=== PATIENT | female | born 1975 | race Caucasian/White ===

== ENCOUNTER 2016-11-19 10:02 | Inpatient (IN) | payer OTHER ==
--- NOTE | 2016-11-19 10:47 | ED.PDOC ---
History of Present Illness - General Chief Complaint: Problem Time Seen by Provider: 11/19/16 10:44 Source: patient, RN notes reviewed, Vital Signs reviewed - History of Present Illness Initial Comments: This 41 y/o uncontrolled diabetic has had increasing left flank pain and dysuria for 3 days. She reports subjective fever - mild. Timing/Duration: other - 3 days Severity: moderate Improving Factors: nothing Worsening Factors: nothing Associated Symptoms: fever/chills Allergies/Adverse Reactions: Allergies Morphine Allergy (Verified 11/07/16 00:08) Sumatriptan [From Imitrex] Allergy (Verified 11/07/16 00:08) Ketorolac Tromethamine [From Toradol] Adverse Reaction (Verified 11/07/16 00:08) Home Medications: Ambulatory Orders Phenobarbital 64.8 mg PO TID 09/18/14 Insulin Aspart [Novolog] 100 unit SC .SLIDING SCALE 07/14/16 Insulin Detemir [Levemir] 60 unit SUBCU BEDTIME 07/14/16 Cyclobenzaprine HCl [Flexeril] 10 mg PO Q8HR #20 tab 07/29/16 Ondansetron [Zofran Odt] 4 mg PO Q4H PRN #10 tab 11/07/16 Sucralfate Tab [Carafate Tab] 1 gm PO QID #60 tab 11/07/16 Review of Systems - Review of Systems Constitutional: States: fever, malaise EENTM: States: no symptoms reported Respiratory: States: no symptoms reported Cardiology: States: no symptoms reported Gastrointestinal/Abdominal: States: no symptoms reported Genitourinary: States: dysuria, frequency Musculoskeletal: States: back pain Skin: States: no symptoms reported Neurological: States: no symptoms reported Endocrine: States: other - elevated blood sugars Hematologic/Lymphatic: States: no symptoms reported Past Medical History (General) - Patient Medical History Hx Seizures: Yes Hx Stroke: No Hx Dementia: No Hx Asthma: No Hx of COPD: No Hx Cardiac Disorders: No Hx Congestive Heart Failure: No Hx Pacemaker: No Hx Hypertension: No Hx Thyroid Disease: No Hx Diabetes: Yes Hx Gastroesophageal Reflux: No Hx Renal Disease: No Hx Cancer: No Hx of HIV: No Hx Hepatitis C: No Hx MRSA: No MRSA Source:: Wound - Vaccination History Hx Tetanus, Diphtheria Vaccination: No Hx Influenza Vaccination: Yes Hx Pneumococcal Vaccination: No - Social History Hx Tobacco Use: No Hx Chewing Tobacco Use: No Hx Alcohol Use: Yes Hx Substance Use: No Hx Substance Use Treatment: No Hx Depression: No Hx Physical Abuse: No Hx Emotional Abuse: No Hx Suspected Abuse: No - Female History Patient : No Family Medical History - Family History Mother Family History: Unknown Living Status: Still Living Hx Family Cancer: Yes - cervical Physical Exam - Physical Exam General Appearance: Alert, Comfortable, No apparent distress Ears, Nose, Throat: hearing grossly normal, normal ENT inspection Respiratory: lungs clear, normal breath sounds, no respiratory distress, no accessory muscle use Cardiovascular/Chest: regular rate, rhythm, no edema, no gallop, no murmur Gastrointestinal/Abdominal: normal bowel sounds, soft, no organomegaly, no pulsatile mass, tenderness - mild epigastric tenderness Back Exam: CVA tenderness (L) Extremity: normal range of motion, non-tender Neurologic: alert, normal mood/affect, oriented x 3 Skin Exam: normal color, warm/dry Progress - Results/Orders Results/Orders: 11/19/16 10:56 Respiratory 20 Rate Blood Pressure 142/83 [L Arm] O2 Sat by Pulse 94 L Oximetry 11/19/16 10:28 URINE CULTURE W/COLONY COUNT Stat 11/19/16 13:19 BLOOD CULTURE Stat 11/19/16 13:22 Meropenem [Merrem] 1 gm Sodium Chl 0.9% 50Ml Min-Bag+ [NS 50ml MINI-BAG+] 50 ml IVPB ONCE Laboratory Results WBC 13.0 K/mm3 (4.8-10.8) H 11/19/16 11:10 RBC 4.75 M/mm3 (4.20-5.40) 11/19/16 11:10 Hgb 13.6 gm/dL (12.0-16.0) 11/19/16 11:10 Hct 40.9 % (36.0-47.0) 11/19/16 11:10 MCV 86.0 fl (81.0-99.0) 11/19/16 11:10 MCH 28.6 pg (27.0-31.0) 11/19/16 11:10 MCHC 33.3 g/dL (33.0-37.0) 11/19/16 11:10 RDW 12.9 % (11.5-14.5) 11/19/16 11:10 Plt Count 221 K/mm3 (130-400) 11/19/16 11:10 MPV 9.0 fl (7.40-10.4) 11/19/16 11:10 Absolute Neuts (auto) 10.00 K/uL (1.8-6.8) H 11/19/16 11:10 Absolute Lymphs (auto) 2.20 K/uL (1.0-3.4) 11/19/16 11:10 Absolute Monos (auto) 0.70 K/uL (0.2-0.8) 11/19/16 11:10 Absolute Eos (auto) 0.00 K/uL (0.0-0.4) 11/19/16 11:10 Absolute Basos (auto) 0.10 K/uL (0.0-0.1) 11/19/16 11:10 Neutrophils % 76.9 % (42.0-78.0) 11/19/16 11:10 Lymphocytes % 16.7 % (20.0-50.0) L 11/19/16 11:10 Monocytes % 5.7 % (2.0-9.0) 11/19/16 11:10 Eosinophils % 0.3 % (1.0-5.0) L 11/19/16 11:10 Basophils % 0.4 % (0.0-2.0) 11/19/16 11:10 Sodium 131 mmol/L (135-145) L 11/19/16 11:10 Potassium 3.9 mmol/L (3.6-5.0) 11/19/16 11:10 Chloride 98 mmol/L (101-111) L 11/19/16 11:10 Carbon Dioxide 24 mmol/L (21-31) 11/19/16 11:10 Anion Gap 12.9 (12-18) 11/19/16 11:10 BUN 15 mg/dL (7-18) 11/19/16 11:10 Creatinine 0.69 mg/dL (0.6-1.3) 11/19/16 11:10 BUN/Creatinine Ratio 21.7 (10-20) H 11/19/16 11:10 Random Glucose 373 mg/dL (70-105) H 11/19/16 11:10 Serum Osmolality 278.7 mOsm/L (275-295) 11/19/16 11:10 Calcium 9.1 mg/dL (8.4-10.2) 11/19/16 11:10 Urine Color Yellow (Yellow) 11/19/16 10:28 Urine Appearance Cloudy (Clear) 11/19/16 10:28 Urine pH 5.0 (4.5-7.8) 11/19/16 10:28 Ur Specific [place] 1.020 (1.005-1.030) 11/19/16 10:28 Urine Protein 30 mg/dL 11/19/16 10:28 Urine Glucose (UA) >=1000 mg/dL (Negative) H 11/19/16 10:28 Urine Ketones Negative mg/dL (NEGATIVE) 11/19/16 10:28 Urine Blood Large (Negative) H 11/19/16 10:28 Urine Nitrite Negative 11/19/16 10:28 Urine Bilirubin Negative (NEGATIVE) 11/19/16 10:28 Urine Urobilinogen 0.2 mg/dL (0.2-1.0) 11/19/16 10:28 Ur Leukocyte Esterase Trace (Negative) H 11/19/16 10:28 Urine RBC 20-30 /hpf H 11/19/16 10:28 Urine WBC Tntc /hpf H 11/19/16 10:28 Ur Epithelial Cells 10-20 /hpf 11/19/16 10:28 Urine Bacteria 4+ H 11/19/16 10:28 Departure - Departure Clinical Impression: Pyelonephritis Diabetes mellitus Qualifiers: Diabetes mellitus type: type 2 Diabetes mellitus complication status: with hyperglycemia Qualifier Code: (E11.65) Type 2 diabetes mellitus with hyperglycemia Time of Disposition: 13:29 Disposition: Admit Patient Condition: Good Departure Forms: ED Discharge - Pt. Copy, Patient Portal Self Enrollment Home Medications: Ambulatory Orders Phenobarbital 64.8 mg PO TID 09/18/14 Insulin Aspart [Novolog] 100 unit SC .SLIDING SCALE 07/14/16 Insulin Detemir [Levemir] 60 unit SUBCU BEDTIME 07/14/16 Cyclobenzaprine HCl [Flexeril] 10 mg PO Q8HR #20 tab 07/29/16 Ondansetron [Zofran Odt] 4 mg PO Q4H PRN #10 tab 11/07/16 Sucralfate Tab [Carafate Tab] 1 gm PO QID #60 tab 11/07/16 Decision To Admit - Decistion To Admit Decision to Admit Reason: Admit from ER Decision to Admit Date: 11/19/16 Decision to Admit Time: 13:20
[2016-11-19] MEDS ORDERED: MEROPENEM 1 GM in SODIUM CHL 0.9% 50ML MIN-BAG+ 50 ML IVPB ONE (13:22)
[2016-11-19] MEDS ORDERED: HYDROmorphone HCL INJ 2 MG/ML VIAL IV ONE (13:23)
--- NOTE | 2016-11-19 13:53 | HP ---
HISTORY OF PRESENT ILLNESS: This 41 year-old white female was admitted to the hospital via the Emergency Room because of worsening symptoms of left sided low back pain with radiation around to the front with associated nausea, vomiting and chills. Her symptoms especially started about 4 days ago and the patient started with increased water and cranberry juice consumption, but her symptoms failed to improve. The back pain on the left side radiating around to the left front of her abdomen is new and she has had some associated chills and low fever. Nausea and vomiting was even worse today. Headache has been noted with some loose stool. No blood in the stool. No blood in the emesis. In the Emergency Room, she was found to have evidence of a urinary tract infection on urinalysis with an elevated white blood cell count. Cultures were obtained and she was started on parenteral Meropenem pending the culture results because of the severity thereof of the pain and the possibility of an underlying pyelonephritis. PAST MEDICAL HISTORY: 1. Diabetes mellitus on insulin. 2. Seizures for which she takes Phenobarbital and the last seizure was a little over a year ago. She is followed by a neurologist out of [place]. PAST SURGICAL HISTORY: 1. Right shoulder. 2. Dilatation and curettage. 3. Appendectomy. 4. Hysterectomy. CURRENT MEDICATIONS: Please refer to nurses' notes for a list of verified medications taken at home by the patient. ALLERGIES: MORPHINE, TORADOL AND SUMATRIPTAN. FAMILY HISTORY: Positive for cancer and diabetes. 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 REVIEW OF SYSTEMS: She states she has lost about 15 pounds over the last couple of months and is trying to lose weight by eating less, and trying to be more active. Low-grade fever and chills noted earlier today. HEENT: Unremarkable. LUNGS: Occasional shortness of breath on exertion. CARDIOVASCULAR: No significant palpitations or significant chest pains. ABDOMEN : Decreased appetite with nausea and vomiting evident starting about 3 or 4 days ago. Dysuria present in the urinary tract and increased frequency. BACK: Exam does reveal some percussible discomfort especially in the left CVA region around towards the left anterior lower quadrant of the abdomen. NEUROLOGIC: No focal weakness. PHYSICAL EXAMINATION: VITAL SIGNS: Afebrile. Pulse 96, blood pressure 154/91, pulse oximetry 96% on room air, weight 87.4 kilos. GENERAL: The patient is awake, alert and oriented, and communicative. You can tell she is in distress with the left back pain and nausea. HEENT: Unremarkable. CHEST: Lungs are generally clear. CARDIOVASCULAR: Heart tones regular. ABDOMEN: Soft with no organomegaly or masses, but she is tender especially to the left side upon gentle palpation and around to the left CVA region. Percussion aggravation is noted. Bowel tones are present. EXTREMITIES: Fairly well formed with good muscle tone. No significant edema. NEUROLOGIC: No focal neurological deficits. LABORATORY: White count is elevated at 13,000 with 77% neutrophils, hemoglobin 13.6. Chemistry shows potassium 3.9, sodium low at 131, but sugar is elevated at 373 contributing to the hyponatremia. Lactic acid 1.2. Urinalysis shows glycosuria, hematuria, marked pyuria and bacteriuria present. Phenobarbital level was performed before renewals can be obtained from the Pharmacy and it is therapeutic at approximately 23 with the range being 15 to 40. ASSESSMENT: 1. Acute urinary tract infection with associated apparent left pyelonephritis. 2. Nausea and vomiting probably secondary to the pyelonephritis. 3. Diabetes mellitus on insulin requiring ongoing management of insulin dosings. 4. History of chronic epileptic disorder for which she takes Phenobarbital daily with a documented blood level at this time being therapeutic. PLAN: The patient is admitted to the hospital for Meropenem parenteral administration. Await culture results and when available then consider switching to an oral preparation for continued home use with followup at [facility]. Consider either ultrasound or CT scan of the abdomen in the morning if the discomfort in the left flank persists to assist in helping to rule out an obstructive uropathy and to help diagnose more definitively a left pyelonephritis. Close followup is necessary. #[id number] [facility]
[2016-11-19] MEDS ORDERED: MEROPENEM 1 GM VIAL IVPB ONE ×2 (14:29→19:46)
[2016-11-19] MEDS ORDERED: SODIUM CHL 0.9% 50ML MIN-BAG+ 50 ML IVPB ONE ×2 (14:29→19:46)
[2016-11-19] MEDS ORDERED: HYDROmorphone HCL INJ 2 MG/ML VIAL ONE (14:32)
[2016-11-19] MEDS ORDERED: MAGNESIUM HYDROXIDE 30 ML UD PO PRN (16:20)
[2016-11-19] MEDS ORDERED: ONDANSETRON INJ 4 MG/2 ML VIAL IV PRN (16:20)
[2016-11-19] MEDS ORDERED: SODIUM CHLORIDE 0.9% (FLUSH) 10 ML SYG IV PRN (16:20)
[2016-11-19] MEDS ORDERED: DEXTROSE 50% 25 GM/50 ML SYG IV PRN (16:24)
[2016-11-19] MEDS ORDERED: GLUCAGON INJ 1 MG VIAL SUBCU PRN (16:24)
[2016-11-19] MEDS ORDERED: IV SET AND CAP CHANGE INJ INJ SCH ×2 (16:30)
[2016-11-19] MEDS ORDERED: LEVALBUTEROL NEBS 1.25 MG/3 ML VIAL INH SCH (16:30)
[2016-11-19] MEDS: INSULIN LISPRO 100 UNITS/ML PEN SUBCU SCH ×2 (16:45→21:11)
[2016-11-19] MEDS: HYDROcodone 5MG/APAP 325MG 1 EA TAB PO PRN ×2 (16:54→22:18)
[2016-11-19] MEDS: CYCLOBENZAPRINE HCL 10 MG TAB PO PRN (16:54)
[2016-11-19] MEDS ORDERED: ENOXAPARIN SODIUM 40 MG/0.4 ML SYG SUBCU SCH (17:30)
[2016-11-19] MEDS: KCL 20 MEQ/NS 1,000 ML IVS PRN (17:38)
[2016-11-19] MEDS ORDERED: PHENOBARBITAL 32.4 MG ONE (19:46)
[2016-11-19] MEDS: PHENOBARBITAL 32.4 MG PO SCH (21:08)
[2016-11-19] MEDS: MEROPENEM 1 GM in SODIUM CHL 0.9% 50ML MIN-BAG+ 50 ML IVPB SCH (21:09)
[2016-11-19] MEDS: INSULIN DETEMIR 100 UNITS/ML PEN SUBCU SCH (21:09)
[2016-11-19] MEDS: BIFIDOBACTERIUM INFANTIS 4 MG CAP PO SCH (21:12)
[2016-11-19] MEDS: SODIUM CHLORIDE 0.9% (FLUSH) 10 ML SYG IV PRN (21:29)
[2016-11-19] MEDS: HYDROmorphone HCL INJ 2 MG/ML VIAL IV PRN (21:31)
[2016-11-20] MEDS ORDERED: SODIUM CHL 0.9% 50ML MIN-BAG+ 50 ML IVPB ONE ×3 (02:13→20:30)
[2016-11-20] MEDS ORDERED: MEROPENEM 1 GM VIAL IVPB ONE ×3 (02:13→20:32)
[2016-11-20] MEDS ORDERED: OMEPRAZOLE CAP 20 MG CAP ONE (02:14)
[2016-11-20] MEDS ORDERED: SODIUM CHLORIDE 0.9% 1000ML 1,000 ML ONE (03:42)
[2016-11-20] MEDS ORDERED: POTASSIUM CHLORIDE 20mEq 10ML VIAL ONE (03:42)
[2016-11-20] MEDS: KCL 20 MEQ/NS 1,000 ML IVS PRN ×2 (03:53→16:25)
[2016-11-20] MEDS: MEROPENEM 1 GM in SODIUM CHL 0.9% 50ML MIN-BAG+ 50 ML IVPB SCH ×3 (05:08→21:45)
[2016-11-20] MEDS: OMEPRAZOLE CAP 20 MG CAP PO SCH (06:29)
[2016-11-20] MEDS: HYDROmorphone HCL INJ 2 MG/ML VIAL IV PRN ×3 (06:34→22:26)
[2016-11-20] MEDS ORDERED: MAGNESIUM HYDROXIDE 30 ML UD PO ONE (07:00)
[2016-11-20] MEDS: INSULIN LISPRO 100 UNITS/ML PEN SUBCU SCH ×4 (08:34→21:25)
[2016-11-20] MEDS ORDERED: PHENOBARBITAL PO SCH (09:00)
[2016-11-20] MEDS: BIFIDOBACTERIUM INFANTIS 4 MG CAP PO SCH ×2 (09:39→21:44)
[2016-11-20] MEDS: HYDROcodone 5MG/APAP 325MG 1 EA TAB PO PRN ×2 (09:43→15:33)
[2016-11-20] MEDS: CYCLOBENZAPRINE HCL 10 MG TAB PO PRN ×2 (09:43→22:01)
[2016-11-20] MEDS: PHENOBARBITAL 32.4 MG PO SCH ×2 (09:43→21:44)
--- NOTE | 2016-11-20 11:06 | US ---
EXAM DESCRIPTION: US RETROPERITONEUM CLINICAL HISTORY: Left flank pain possible pyelo COMPARISON: None. TECHNIQUE: Real-time sonographic images of the kidneys are obtained. FINDINGS: The right kidney measures 10.5 x 5.0 x 5.6 cm. The left kidney measures 11.8 x 5.8 x 5.3 cm. Both kidneys show normal renal cortical echogenicity. No hydronephrosis is seen. No focal cystic or solid mass is identified. Urinary bladder is not evaluated. IMPRESSION: Unremarkable renal ultrasound. Electronically signed by: Thien Ace MD 11/20/2016 11:04
[2016-11-20] MEDS ORDERED: HYDROmorphone HCL INJ 2 MG/ML VIAL IV ONE (15:43)
--- NOTE | 2016-11-20 16:37 | CT ---
EXAM DESCRIPTION: CT ABDOMEN PELVIS WITHOUT IV CONTRAST CLINICAL HISTORY: r/o kidney stone COMPARISON: None Available. TECHNIQUE: Contiguous axial images of the abdomen and pelvis were obtained followed by reconstruction images. FINDINGS: There is mild stranding of the left perinephric fat and mild dilatation of the left upper collecting system which could represent the sequela of a recently passed stone versus an infectious process. Correlation with laboratory data recommended and further imaging as indicated. There is no discrete renal stone. There is no stone within the ureter. Calcifications within the pelvis compatible with phleboliths. The liver, spleen, pancreas and right kidney are within normal limits. The gallbladder is unremarkable by CT criteria. Adrenal glands are within normal limits. Aorta is of normal caliber and tapering. There is no free fluid in the abdomen or pelvis. There is no bowel obstruction. Patient is status post appendectomy. Focal area of stranding within the subcutaneous fat of the lower anterior abdominal wall with small amount of air suggest recent instrumentation. IMPRESSION: Mild left perinephric stranding and mild dilatation of the upper left collecting system could represent the sequela of a recently passed stone. Other etiologies including an infectious process cannot be excluded. Recommend correlation with laboratory data and further imaging as indicated. Electronically signed by: Samuel Ching 11/20/2016 16:35
[2016-11-20] MEDS ORDERED: IBUPROFEN 400 MG TAB PO ONE (17:13)
[2016-11-20] MEDS: TAMSULOSIN 0.4 MG CAP PO SCH (18:09)
[2016-11-20] MEDS: PHENAZOPYRIDINE HCL 200 MG TAB PO SCH ×2 (18:09→21:46)
[2016-11-20] MEDS: INSULIN DETEMIR 100 UNITS/ML PEN SUBCU SCH (21:26)
[2016-11-20] MEDS: ENOXAPARIN SODIUM 40 MG/0.4 ML SYG SUBCU SCH (21:45)
[2016-11-20] MEDS: SODIUM CHLORIDE 0.9% (FLUSH) 10 ML SYG IV SCH (21:46)
--- NOTE | 2016-11-21 00:56 | PCM.CORE ---
Physician DVT/VTE - Nurse DVT Assessment & Total Each Risk Factor Represents 1 Point: Age 41-60, Hx of smoking past year Each Risk Factor is 1 Point: Obesity (BMI >25) DVT Assessment Score: 3 - 3-4 High Risk Treatments: Early Ambulation *, Sequential Compression Device Pharmacological: Enoxaparin 40 mg SQ Daily
[2016-11-21] MEDS: HYDROcodone 5MG/APAP 325MG 1 EA TAB PO PRN ×3 (03:55→21:25)
[2016-11-21] MEDS ORDERED: SODIUM CHL 0.9% 50ML MIN-BAG+ 0 ML IVPB ONE (04:04)
[2016-11-21] MEDS ORDERED: MEROPENEM 1 GM VIAL IVPB ONE ×2 (04:04→11:32)
[2016-11-21] MEDS: MEROPENEM 1 GM in SODIUM CHL 0.9% 50ML MIN-BAG+ 50 ML IVPB SCH (05:04)
[2016-11-21] MEDS: SODIUM CHLORIDE 0.9% (FLUSH) 10 ML SYG IV PRN ×3 (05:05→06:42)
[2016-11-21] MEDS: OMEPRAZOLE CAP 20 MG CAP PO SCH (06:07)
[2016-11-21] MEDS: HYDROmorphone HCL INJ 2 MG/ML VIAL IV PRN ×2 (06:24→20:02)
[2016-11-21] MEDS ORDERED: SODIUM CHLORIDE 0.9% 500ML 500 ML ONE (06:37)
[2016-11-21] MEDS ORDERED: SODIUM CHLORIDE 0.9% 500ML 500 ML IVS ONE (06:39)
[2016-11-21] MEDS: INSULIN LISPRO 100 UNITS/ML PEN SUBCU SCH ×6 (08:05→21:30)
[2016-11-21] MEDS: PHENAZOPYRIDINE HCL 200 MG TAB PO SCH ×3 (09:56→21:26)
[2016-11-21] MEDS: BIFIDOBACTERIUM INFANTIS 4 MG CAP PO SCH ×2 (09:56→21:29)
[2016-11-21] MEDS: TAMSULOSIN 0.4 MG CAP PO SCH (09:56)
[2016-11-21] MEDS: PHENOBARBITAL 32.4 MG PO SCH ×2 (09:57→21:26)
[2016-11-21] MEDS: SODIUM CHLORIDE 0.9% (FLUSH) 10 ML SYG IV SCH ×2 (09:58→21:30)
[2016-11-21] MEDS: KCL 20MEQ/0.45% NS 1,000 ML IVS PRN ×2 (10:05→18:23)
--- NOTE | 2016-11-21 10:59 | PN ---
SUPERVISING PHYSICIAN: Ba Gordon MD DATE: 11/20/16 SUBJECTIVE: The patient continues to have left-sided flank pain. She has not had any nausea or vomiting. Her pain has been fairly well-controlled with ibuprofen and [place] and Dilaudid. She remains afebrile. OBJECTIVE: VITAL SIGNS: T-max 98.0, pulse 72, blood pressure 108/74, respirations 20, 02 saturation showing 96% on room air at rest. I&O: positive balance of 1418 with 2018 in and 600 out. Weight 89.4 kg. CHEST: Lungs are clear to auscultation bilaterally. HEART: Regular rate and rhythm. ABDOMEN: Soft with notable tenderness in the left flank CVA area but no johnie abdominal pains. No suprapubic discomfort. EXTREMITIES: No cyanosis, clubbing, or edema. NEUROLOGICAL: Alert and oriented x3. LABORATORY: White count is now normalized at 8.0, hemoglobin 12.1, hematocrit 35.7, platelet count 211,000, differential shows it to be within normal limits. Chemistries show normal electrolytes, potassium 3.8, BUN 14, creatinine 0.52, glucose remains elevated with 194 up to 97. Calcium 8.5. MICROBIOLOGY: Preliminary urine culture shows a gram negative jennifer. Blood cultures remain negative at 24 hours. RADIOLOGY: Renal ultrasound completed this morning and per radiology interpretation shows unremarkable renal ultrasound with no hydronephrosis or possible cysts or masses identified. She continued to have significant abdominal pain, especially CVA tenderness. This was followed up with an abdominal pelvis CT with IV contrast which per radiology interpretation showed mild left paraphrenic stranding and mild dilation of the upper left collecting system, could represent the sequelae, recently passed stone versus infectious process. ASSESSMENT: 1. Acute urinary tract infection with left-sided CVA tenderness, radiographic indications on CT of possible recently passed stone with infectious process likely representing pyelonephritis. 2. Nausea and vomiting initially in admission secondary to pain associated with left-sided CVA tenderness. . 3. Diabetes mellitus type 2 on insulin continuing to show poorly controlled glucoses requiring management of insulin dosing. 4. History of chronic epileptic disorder currently on phenobarbital with therapeutic levels and phenobarbital restarted as per past medical record review. PLAN: The patient did show a gram negative jennifer on initial cultures. This is pending final sensitivity report and identification. Until then we will continue with current medication to include parenteral antibiotics with Meropenem. Once these results are completed, certainly we will target antibiotic therapy accordingly. Both ultrasound and CT scan failed to demonstrate any stones or nephrolithiasis or uropathy other than stranding consistent with a possible infectious process again likely presenting pyelonephritis. Will await final culture results and treat her pain accordingly with Dilaudid as needed and provide Zofran for any nausea or vomiting. She has adequate fluid volume at this point and is taking adequate p.o. fluids. Therefore, we will saline lock her. Her glucoses continue to be elevated, however, the patient is very noncompliant with her diet in the hospital as she has been receiving foods from friends and family and once again , has been encouraged to follow her diet closely as her sugars have been poorly. Will continue to monitor this and manage her insulin as needed. Will anticipate discharge in the next 48 hours, possibly pending clinical reevaluation and laboratory studies and final culture results. To help treat with her pain I will start her on some Pyridium as well as some Flomax with consideration of possibly having recently passed a stone. Will also remind the patient that she needs to strain her urines with anticipation of having recently passed a stone and need for stone analysis if possible. Until discharge, we will continue to monitor patient closely and treat appropriately #[id number] [facility]
[2016-11-21] MEDS ORDERED: SODIUM CHL 0.9% 50ML MIN-BAG+ 50 ML IVPB ONE (11:32)
[2016-11-21] MEDS ORDERED: levoFLOXacin 500MG IV 100 ML IVPB ONE (11:58)
[2016-11-21] MEDS ORDERED: levoFLOXacin 500MG IV 500 MG in PREMIX BAG 1 BAG IVPB SCH (12:00)
--- NOTE | 2016-11-21 20:39 | PN ---
DATE: 11/21/16 SUPERVISING PHYSICIAN: Ba Gordon M.D. SUBJECTIVE: The patient's pain is less than previous days. She remains without a fever. She has not had any nausea or vomiting. OBJECTIVE: VITAL SIGNS: T max 99.7, pulse 73, blood pressure 134/85, respirations 18, O2 sat 96% on room air. I's and O's show a negative balance of 39 with 1761 in, 1800 out. CHEST: Clear to auscultation bilaterally. HEART : Regular rate and rhythm. ABDOMEN: Soft, non-tender. There remains some tenderness in the left CVA. Bowel sounds are positive. EXTREMITIES: No clubbing or cyanosis. NEUROLOGIC: She is alert and oriented times three. LABORATORY: White count remains normal at 5.6, hemoglobin and hematocrit 11.5 and 34.1, platelet count 201,000. Differential shows to be within normal limits. Chemistries show normal electrolytes with potassium 4.0, BUN 14, creatinine 0.57. Glucoses have shown some improvement now from 156 to 167, calcium 8.8. MICROBIOLOGY: Final urine culture showed Escherichia coli that is sensitive to Meropenem as well as Levaquin, Cipro, Rocephin and Cefepime. Please refer to final sensitivity report for full details. Blood cultures remain negative after 48 hours. ASSESSMENT: 1. Acute urinary tract infection with left sided CVA tenderness and radiographic indications on CT of possibly recently passed stone versus an infectious process likely representing developing pyelonephritis. 2. Nausea and vomiting on admission secondary to pain associated with left sided CVA tenderness showing improvement. 3. Diabetes mellitus type 2 on insulin continuing to show elevated glucoses requiring further management of her insulin dosing. 4. History of chronic epileptic disorder currently on Phenobarbital with therapeutic levels with Phenobarbital restarted as per previous medical record review. 5. Questionable nephrolithiasis without any current evidence on CT, however the patient is not straining her urine as requested but remains with improvement in her dysuria after starting on Pyridium and Flomax. PLAN: The patient's antibiotic therapy today will be adjusted according to her sensitivity report. She will be started on Levaquin with the Meropenem being stopped in anticipation of possible discharge tomorrow and transition to p.o. medications. She does remain afebrile and has so for the last 24 hours, but continues to have some tenderness in her left CVA and requirements of continuation at least for an additional 24 hours of parenteral antibiotics. She is doing well with Flomax and Pyridium. I have continued her IV fluids and encouraged her to try p.o. intake, however her urine output has not been adequate enough prior to resuming her IV therapy. Again hopefully can discharge tomorrow and transition to Levaquin with close followup with her primary care physician. Until then, will continue to follow closely and treat appropriately. #[id number] [facility]
[2016-11-21] MEDS: CYCLOBENZAPRINE HCL 10 MG TAB PO PRN (21:25)
[2016-11-21] MEDS: ENOXAPARIN SODIUM 40 MG/0.4 ML SYG SUBCU SCH (21:26)
[2016-11-21] MEDS: INSULIN DETEMIR 100 UNITS/ML PEN SUBCU SCH (21:26)
[2016-11-22] MEDS: HYDROmorphone HCL INJ 2 MG/ML VIAL IV PRN (05:48)
[2016-11-22] MEDS: OMEPRAZOLE CAP 20 MG CAP PO SCH (05:58)
[2016-11-22] MEDS: KCL 20MEQ/0.45% NS 1,000 ML IVS PRN (06:40)
[2016-11-22] MEDS: INSULIN LISPRO 100 UNITS/ML PEN SUBCU SCH ×2 (08:02→08:03)
[2016-11-22] MEDS: PHENOBARBITAL 32.4 MG PO SCH (09:05)
[2016-11-22] MEDS: PHENAZOPYRIDINE HCL 200 MG TAB PO SCH (09:05)
[2016-11-22] MEDS: BIFIDOBACTERIUM INFANTIS 4 MG CAP PO SCH (09:05)
[2016-11-22] MEDS: TAMSULOSIN 0.4 MG CAP PO SCH (09:05)
[2016-11-22] MEDS: SODIUM CHLORIDE 0.9% (FLUSH) 10 ML SYG IV SCH (09:06)
[2016-11-22] MEDS ORDERED: levoFLOXacin 500 MG TAB PO ONE (10:20)
[2016-11-22 11:06] VITALS: BP 144/87; TEMP 98.3; O2SAT 97
--- NOTE | 2016-11-22 18:37 | DS ---
DISCHARGE DIAGNOSIS: 1. Acute urinary tract infection with Escherichia coli with sensitivities on the chart associated with acute left sided pyelonephritis with radiographic evidence of infectious process versus a recently passed stone not visualized. 2. Nausea and vomiting probably secondary to the left sided pyelonephritis showing improvement. 3. Diabetes mellitus type 2 on insulin therapy requiring ongoing adjustments of insulin dosings. 4. History of chronic seizure disorder currently on Phenobarbital with therapeutic levels determined to allow refills of the Phenobarbital at the pharmacy. HISTORY OF PRESENT ILLNESS: This 41 year-old white female is admitted to the hospital via the Emergency Room because of worsening symptoms of left sided back pain with radiation around to the front to the left lower quadrant. This was associated with protracted nausea and vomiting as well as chills. She has been getting sicker for the last 4 days. She has tried to increase her fluid and cranberry juice consumption but has failed to improve. She is followed in the [facility]. In the Emergency Room, she was found to have evidence of a significant urinary tract infection and cultures were obtained. She was started on Meropenem pending culture and sensitivities for a probable underlying pyelonephritis which radiographically was shown to be the case. LABORATORY: White count initially was 13,000 with 77% neutrophils reverting to normal of 6,300 with 52% neutrophils and hemoglobin 11.8. Chemistries did show elevated sugar levels during the hospital but they were about 128 fasting on the day of discharge. Potassium was up to 4.1, BUN 9, creatinine 0.53. Lactic acid was 1.2. Urine showed hematuria, pyuria and bacteriuria initially with some clearing of many of these factors as the hospital course continued. Phenobarbital level was therapeutic at about 23 with range being between 15 and 40. Cultures showed blood cultures negative while urine culture was positive for Escherichia coli greater than 100,000 colony counts resistant to Cephazolin and sensitive to Meropenem and fluoroquinolones which were continued as Levaquin upon discharge. X-RAY: CT scan of the abdomen and pelvis showed some mild left perinephric stranding and mild dilation of the upper collecting system possibly consistent with the pyelonephritis on the left side versus an early passage of a stone not visualized. HOSPITAL COURSE: The patient was feeling much improved on the morning of discharge and was ready to be continued on oral therapy with close outpatient management and followup. PLAN: The patient is discharged home to have followup with Razia Dominguez at the [facility] this next week. She is going to continue her home medications, including the insulin. To this is added Levaquin 500 mg #8 one daily to begin by tomorrow morning when she picks it up at the pharmacy. Drink plenty of fluids. Try Tylenol and Advil as needed for pain and return if not improving. Try Align twice a day until off of the Levaquin. Close followup necessary. #[id number] [facility]
== END 2016-11-22 11:00 | disposition home or self-care (01) | DRG 690 ==
LOC: ER 10:02 → MS 13:53 → OBSVTOIN 13:53
PROVIDERS: ADMIT Emergency Medicine; ATTEND Emergency Medicine
DX: N10 Acute pyelonephritis (principal); E11.65 Type 2 diabetes mellitus with hyperglycemia; G40.909 Epilepsy, unspecified, not intractable, without status epilepticus; Z79.899 Other long term (current) drug therapy; Z88.5 Allergy status to narcotic agent; Z88.8 Allergy status to other drugs, medicaments and biological substances; Z79.4 Long term (current) use of insulin

== ENCOUNTER 2017-02-21 22:47 | Emergency (ER) | payer OTHER ==
[2017-02-22 00:23] VITALS: TEMP 98.1
--- NOTE | 2017-02-22 01:09 | RAD ---
EXAM: Three view(s) of the cervical spine. INDICATION: Pain, cervical spine. COMPARISON: None. FINDINGS: Technical: On the lateral view, the craniocervical junction to the C7-T1 level is visualized. Alignment: Mild reversal of cervical lordosis Fracture: No acute fracture or subluxation. Odontoid process: Intact. Prevertebral soft tissues: Within normal limits. IMPRESSION: 1. No acute fracture. Electronically signed by: Tommie Phillips MD 02/22/2017 1:08 AM CDT
--- NOTE | 2017-02-22 01:09 | RAD ---
EXAM: Two view(s) of the left hip. INDICATION: Pain. COMPARISON: None. FINDINGS: No acute fracture or dislocation. No large soft tissue swelling. IMPRESSION: 1. No acute fracture. Electronically signed by: Tommie Phillips MD 02/22/2017 1:09 AM CDT
--- NOTE | 2017-02-22 01:10 | RAD ---
EXAM: Two view(s) of the left shoulder. INDICATION: Pain. COMPARISON: None. FINDINGS: No acute fracture or dislocation. No large soft tissue swelling. IMPRESSION: 1. No acute fracture. Electronically signed by: Tommie Phillips MD 02/22/2017 1:09 AM CDT
[2017-02-22] MEDS ORDERED: ORPHENADRINE CITRATE 30 MG/ML AMP IM ONE (01:26)
[2017-02-22] MEDS ORDERED: KETOROLAC TROMETHAMINE INJ 60 MG/2 ML VIAL IM ONE (01:26)
--- NOTE | 2017-02-22 01:26 | ED.PDOC ---
History of Present Illness - General Chief Complaint: Neck Injury/Pain Stated Complaint: hip,shoulder and neck pain to left Time Seen by Provider: 02/22/17 00:30 Source: patient, RN notes reviewed, Vital Signs reviewed Exam Limitations: no limitations - History of Present Illness Initial Comments: Patient is a 42 y/o female who was coming off the elevator at work when she tripped and fell down. She hit her left hip and left shoulder when she hit the ground. She did not hit her head, however, her neck is sore. The pain is moderate and achey. Timing/Duration: 1/2 hour Severity: moderate Improving Factors: immobilization Worsening Factors: movement Associated Symptoms: denies symptoms Allergies/Adverse Reactions: Allergies Morphine Allergy (Verified 11/07/16 00:08) Sumatriptan [From Imitrex] Allergy (Verified 11/07/16 00:08) Home Medications: Ambulatory Orders Insulin Aspart [Novolog] 0 unit SC .SLIDING SCALE 07/14/16 Insulin Detemir [Levemir Pen] 55 unit SUBCU BEDTIME 07/14/16 Phenobarbital 129.6 mg PO DAILY 11/20/16 Review of Systems - Review of Systems Constitutional: States: no symptoms reported EENTM: States: no symptoms reported Respiratory: States: no symptoms reported Cardiology: States: no symptoms reported Gastrointestinal/Abdominal: States: no symptoms reported Genitourinary: States: no symptoms reported Musculoskeletal: States: back pain, joint pain, muscle pain, neck pain Skin: States: no symptoms reported Neurological: States: no symptoms reported Endocrine: States: no symptoms reported Hematologic/Lymphatic: States: no symptoms reported All other Systems: Reviewed and Negative Past Medical History (General) - Patient Medical History Hx Seizures: Yes Hx Stroke: No Hx Dementia: No Hx Asthma: No Hx of COPD: No Hx Cardiac Disorders: No Hx Congestive Heart Failure: No Hx Pacemaker: No Hx Hypertension: No Hx Thyroid Disease: No Hx Diabetes: Yes Hx Gastroesophageal Reflux: No Hx Renal Disease: No Hx Cancer: No Hx of HIV: No Hx Hepatitis C: No Hx MRSA: No MRSA Source:: Wound Surgical History: appendectomy, Hysterectomy - Vaccination History Hx Tetanus, Diphtheria Vaccination: No Hx Influenza Vaccination: Yes Hx Pneumococcal Vaccination: No - Social History Hx Tobacco Use: No Hx Chewing Tobacco Use: No Hx Alcohol Use: No Hx Substance Use: No Hx Substance Use Treatment: No Hx Depression: No Hx Physical Abuse: No Hx Emotional Abuse: No Hx Suspected Abuse: No - Female History Patient is a Female of Child Bearing Age (10 -59 yrs old): No - hysterectomy Patient : No Family Medical History - Family History Mother Family History: Unknown Living Status: Still Living Hx Family Cancer: Yes - cervical Physical Exam - Physical Exam General Appearance: Alert, Obvious distress - Mild distress Ears, Nose, Throat: hearing grossly normal, normal ENT inspection Neck: limited range of motion, tender lateral - Left Respiratory: no respiratory distress Back Exam: decreased range of motion, muscle spasm - left paraspinal, sciatic nerve tenderness Extremity: other - left shoulder: pain with movement, tender around joint space and rotator cuff muscles. No hip tenderness. Tenderness is in the buttock. Neurologic: no motor/sensory deficits, alert, normal mood/affect, oriented x 3 Skin Exam: normal color, warm/dry, other - no bruising noted Progress - Progress Progress: 02/22/17 01:32 Patient was given Toradol and Norflex. I offered to give her a muscle relaxer and naproxen prescriptions, however she has some cyclobenzaprine left from previous treatment that she will take and OTC naproxen. - EKG/XRAY/CT XRAY: c-spine - reversal of lordotic curve, no fracture - Additional EKG/XRAY/Consults XRAY #2: left shoulder - No fracture XRAY #3: hip - No fracture Departure - Departure Clinical Impression: Neck strain Qualifiers: Encounter type: initial encounter Qualifier Code: (S16.1XXA) Strain of muscle, fascia and tendon at neck level, initial encounter Left shoulder strain Qualifiers: Encounter type: initial encounter Qualifier Code: (S46.912A) Strain of unspecified muscle, fascia and tendon at shoulder and upper arm level, left arm , initial encounter Sciatic nerve pain Qualifiers: Laterality: left Qualifier Code: (M54.32) Sciatica, left side Time of Disposition: 01:49 Disposition: Discharge to Home or Self Care Departure Forms: ED Discharge - Pt. Copy, Patient Portal Self Enrollment Diet: resume usual diet Home Medications: Ambulatory Orders Insulin Aspart [Novolog] 0 unit SC .SLIDING SCALE 07/14/16 Insulin Detemir [Levemir Pen] 55 unit SUBCU BEDTIME 07/14/16 Phenobarbital 129.6 mg PO DAILY 11/20/16 Additional Instructions: Patient may take her prescribed cyclobenzaprine as needed for muscle spasm and naproxen or ibuprofen for pain. Follow up with worker's compensation physician in 1 week or sooner if symptoms worsen. May come to ED if symptoms worsen. Patient is released to return to work.
[2017-02-22 02:00] VITALS: BP 136/85; O2SAT 97
== END 2017-02-22 01:59 | disposition home or self-care (01) ==
LOC: ER 22:47
DX: S16.1XXA Strain of muscle, fascia and tendon at neck level, initial encounter (principal); S46.912A Strain of unspecified muscle, fascia and tendon at shoulder and upper arm level, left arm, initial encounter; M54.32 Sciatica, left side; E11.9 Type 2 diabetes mellitus without complications; Z88.6 Allergy status to analgesic agent; Z88.8 Allergy status to other drugs, medicaments and biological substances; Z79.4 Long term (current) use of insulin; W01.0XXA Fall on same level from slipping, tripping and stumbling without subsequent striking against object, initial encounter; Y99.0 Civilian activity done for income or pay
CPT/HCPCS: 72040; 73030; 73502; J1885; J2360

== ENCOUNTER → 2017-02-22 | Outpatient (CLI) | payer OTHER ==
--- NOTE | 2017-02-22 18:41 | CT ---
PROCEDURE: Head HISTORY: UNSPECIFIED CONVULSIONS, HEADACHE Indication: Same as above Comparison: None Technique: CT of the head was done without intravenous contrast was done in the orthogonal planes. This exam was performed according to our departmental dose-optimization program, which includes automated exposure control, adjustment of the mA and/or KV according to the patient's size and/or use of iterative reconstruction technique. FINDINGS: There is no intracranial hemorrhage, midline shift mass effect or acute focal infarct. If clinical concern exists regarding an acute ischemic/vascular pathology being responsible for patient's symptomatology, an MRI of the brain is more sensitive than the current study, in ruling out such a possibility. There is good chavez/white matter differentiation. The ventricular system is normal. The mastoid air cells are unremarkable . The paranasal sinuses are unremarkable . There is no visualization of acute fractures involving the calvarium or the skull base. IMPRESSION: There is no acute intracranial abnormality. Electronically signed by: Jose Fernández MD 02/22/2017 6:41 PM CDT
== END | disposition home or self-care (01) ==
LOC: LAB.O 17:49
PROVIDERS: ATTEND Nurse Practitioner Family
DX: R56.9 Unspecified convulsions (principal); R51 Headache; H57.02 Anisocoria; H53.8 Other visual disturbances

== ENCOUNTER → 2017-03-18 | Outpatient (CLI) | payer OTHER ==
--- NOTE | 2017-03-18 15:07 | MRI ---
EXAM DESCRIPTION: Brain w/wo Contrast CLINICAL HISTORY: 42 years Female, R51 headaches post trauma three weeks earlier with dizziness COMPARISON: None. TECHNIQUE: MRI of the brain is performed according to our usual protocol including multiplanar multi sequence technique. Post gadolinium imaging is performed following IV administration of gadolinium contrast agent. FINDINGS: MRI of the brain before and after contrast enhancement demonstrates a small normal ventricular system. No parenchymal or subarachnoid or subdural hemorrhage or evidence of hematoma or shear type injury is seen. No midline shift is noted. Focal gliosis or encephalomalacia or significant small vessel white matter disease is not apparent. Third and fourth ventricles are midline the region of the foramen magnum is normal. Postcontrast imaging demonstrates normal meningeal and vascular structures to enhance. A 3-D sequence demonstrates normal venous vascular structures without evidence of thrombosis. IMPRESSION: Normal MRI of the brain without and with contrast enhancement. Electronically signed by: Ba Galindo MD 03/18/2017 3:07 PM CDT
== END ==
LOC: MRI 08:27
PROVIDERS: ATTEND Nurse Practitioner Family
DX: R51 Headache (principal); G50.0 Trigeminal neuralgia; R56.9 Unspecified convulsions; H53.8 Other visual disturbances

== ENCOUNTER → 2017-05-21 | Outpatient (CLI) | payer OTHER | END | disposition home or self-care (01) | LOC: LAB.O 07:42 | PROVIDERS: ATTEND Nurse Practitioner Family | DX: G40.909 Epilepsy, unspecified, not intractable, without status epilepticus (principal); E78.5 Hyperlipidemia, unspecified; E11.65 Type 2 diabetes mellitus with hyperglycemia ==

== ENCOUNTER → 2017-06-01 | Outpatient (CLI) | payer OTHER ==
--- NOTE | 2017-06-02 13:22 | MAM ---
EXAM DESCRIPTION: Screening Mammogram,Bilateral CLINICAL HISTORY: 42 yearsFemaleSCREENINGpostmenopausal. COMPARISON: Digital screening bilateral examination 05/18/2016. No prior reports available. TECHNIQUE: Bilateral CC and MLO projection full-field images, digital screening mammographic technique. CAD was utilized. FINDINGS: The breast parenchymal density pattern is: Almost entirely fatty. No skin thickening or nipple retraction bilateral solitary macro and microcalcifications. No focal, stellate mass or density, focal asymmetry , and no suspicious microcalcifications bilaterally. Stable mammograms since April 2016. IMPRESSION: BI-RADS CATEGORY: 2 - BENIGN FINDINGS. FOLLOW UP: Routine digital bilateral screening, one year interval from May 2017. Written communication explaining the findings and follow-up, will be mailed to the patient and referring health care provider. According to the [employer], yearly mammograms are recommended starting at age 40 and continuing as long as a woman is in good health. Any breast change noted on a breast self-exam should be reported promptly to the patient's healthcare provider. Breast MRI is recommended for women with an approximately 20-25% or greater lifetime risk of breast cancer, including women with a strong family history of breast or ovarian cancer and women who have been treated for Hodgkin's disease. A negative mammographic report should not delay tissue diagnosis in patients with significant clinical history or physical findings. Extremely dense breast tissue limits the sensitivity of digital mammography. Electronically signed by: Hua Alonso MD 06/02/2017 1:17 PM CDT Workstation: [id number]
== END ==
LOC: MAMMO 16:00
PROVIDERS: ATTEND Family Medicine
DX: Z12.31 Encounter for screening mammogram for malignant neoplasm of breast (principal)

== ENCOUNTER 2017-08-28 22:33 | Emergency (ER) | payer OTHER ==
[2017-08-28 22:47] VITALS: TEMP 97.4; O2SAT 99
[2017-08-28] MEDS ORDERED: ONDANSETRON INJ 4 MG/2 ML VIAL IV ONE (22:55)
[2017-08-28] MEDS ORDERED: diphenhydrAMINE HCL 50 MG/ML VIAL IV ONE (22:56)
--- NOTE | 2017-08-28 23:02 | ED.PDOC ---
History of Present Illness - General Chief Complaint: Problem Stated Complaint: bilateral flank pain, N/V Time Seen by Provider: 08/28/17 22:49 Source: patient, RN notes reviewed, Vital Signs reviewed Exam Limitations: no limitations - History of Present Illness Initial Comments: Patient comes in with 2 complaints. Today she accidentally ate some black olives. They cause her to vomit & this started ~2 hours after ingestion. Secondly she has been having sharp, bilateral flank pain for 2 weeks. Feels same as when she had kidney stones ~2.5 months ago. Denies urinary symptoms. Timing/Duration: 1-3 hours - for vomiting, 2 weeks for flank pain Severity: moderate Improving Factors: nothing Worsening Factors: nothing Associated Symptoms: nausea/vomiting Allergies/Adverse Reactions: Allergies Morphine Allergy (Verified 08/28/17 22:46) Sumatriptan [From Imitrex] Allergy (Verified 08/28/17 22:46) Home Medications: Ambulatory Orders Insulin Aspart [Novolog] 0 unit SC .SLIDING SCALE 07/14/16 Phenobarbital 129.6 mg PO AC 11/20/16 Cyclobenzaprine HCl [Flexeril] 10 mg PO TID PRN 08/28/17 Insulin NPH Isophane & Reg (Hu [Novolin 70/30 (70-30) 100 Unit/ml] 20 inj SC TID 08/28/17 Phenobarbital 64.8 mg PO BEDTIME 08/28/17 Pregabalin [Lyrica] 50 mg PO BID 08/28/17 Review of Systems - Review of Systems Constitutional: States: no symptoms reported Respiratory: States: no symptoms reported Cardiology: States: no symptoms reported Gastrointestinal/Abdominal: States: constipation, nausea, vomiting. Denies: abdominal pain Genitourinary: States: no symptoms reported. Denies: dysuria, frequency, pain Musculoskeletal: States: back pain Skin: States: no symptoms reported Neurological: States: no symptoms reported All other Systems: No Change from Baseline Past Medical History (General) - Patient Medical History Hx Seizures: Yes Hx Stroke: No Hx Dementia: No Hx Asthma: No Hx of COPD: No Hx Cardiac Disorders: No Hx Congestive Heart Failure: No Hx Pacemaker: No Hx Hypertension: No Hx Thyroid Disease: No Hx Diabetes: Yes Hx Gastroesophageal Reflux: No Hx Renal Disease: No Hx Cancer: No Hx of HIV: No Hx Hepatitis C: No Hx MRSA: No MRSA Source:: Wound Surgical History: appendectomy, Hysterectomy - Vaccination History Hx Tetanus, Diphtheria Vaccination: No Hx Influenza Vaccination: No Hx Pneumococcal Vaccination: No - Social History Hx Tobacco Use: No Hx Chewing Tobacco Use: No Hx Alcohol Use: No Hx Substance Use: No Hx Substance Use Treatment: No Hx Depression: No Feels Threatened In Home Enviroment: No Feels Threatened In a Relationship: No Hx Physical Abuse: No Hx Emotional Abuse: No Hx Suspected Abuse: No - Female History Patient : No Family Medical History - Family History Mother Family History: Unknown Living Status: Still Living Hx Family Cancer: Yes - cervical Physical Exam - Physical Exam General Appearance: Alert, No apparent distress, Well Developed, Well Groomed, Well Hydrated, Well Nourished, Other - Uncomfortable Neck: supple, normal inspection Respiratory: lungs clear, normal breath sounds, no respiratory distress, no accessory muscle use Cardiovascular/Chest: regular rate, rhythm, no gallop, no JVD, no murmur Gastrointestinal/Abdominal: normal bowel sounds, non tender, soft, no organomegaly Back Exam: CVA tenderness (R), CVA tenderness (L) Extremity: normal range of motion, normal inspection Neurologic: alert, normal mood/affect, oriented x 3 Skin Exam: normal color, warm/dry Comments: Vital Signs 08/28/17 22:37 Temperature 97.4 F L Pulse Rate [ 88 monitor] Respiratory 20 Rate Blood Pressure 136/82 [Left Arm] O2 Sat by Pulse 99 Oximetry Progress - Progress Progress: 08/29/17 01:43 Blood sugar was 534 with negative Ketones - gave 18U reg Insulin SQ Repeat BS 448 - will give another 15U SQ and d/c home. She is agreeable with plan. - Results/Orders Results/Orders: Laboratory Tests 08/28/17 08/28/17 08/28/17 22:56 23:12 23:12 WBC 7.9 RBC 4.56 Hgb 13.1 Hct 38.3 MCV 84.1 MCH 28.8 MCHC 34.3 RDW 12.5 Plt Count 214 MPV 9.3 Absolute Neuts (auto) 4.20 Absolute Lymphs (auto) 3.00 Absolute Monos (auto) 0.50 Absolute Eos (auto) 0.10 Absolute Basos (auto) 0.00 Neutrophils % 53.6 Lymphocytes % 37.8 Monocytes % 6.7 Eosinophils % 1.4 Basophils % 0.5 Sodium 133 L Potassium 4.0 Chloride 99 L Carbon Dioxide 24 Anion Gap 14.0 BUN 19 H Creatinine 0.73 BUN/Creatinine Ratio 26.0 H POC Glucose Random Glucose 534 H* Serum Osmolality 292.1 Calcium 9.4 Total Bilirubin 0.3 AST 15 ALT 17 Alkaline Phosphatase 156 H Serum Total Protein 8.2 Albumin 4.1 Globulin 4.1 H Albumin/Globulin Ratio 1.0 L Urine Color Yellow Urine Appearance Clear Urine pH 6.0 Ur Specific [place] 1.015 Urine Protein Negative Urine Glucose (UA) >=1000 H Urine Ketones Negative Urine Blood Negative Urine Nitrite Negative Urine Bilirubin Negative Urine Urobilinogen 0.2 Ur Leukocyte Esterase Negative Urine RBC 0-1 Urine WBC 1-3 Ur Epithelial Cells 1-3 Amorphous Sediment 1+ Urine Bacteria Rare Serum Ketones 08/28/17 08/29/17 08/29/17 23:12 01:07 01:10 WBC RBC Hgb Hct MCV MCH MCHC RDW Plt Count MPV Absolute Neuts (auto) Absolute Lymphs (auto) Absolute Monos (auto) Absolute Eos (auto) Absolute Basos (auto) Neutrophils % Lymphocytes % Monocytes % Eosinophils % Basophils % Sodium Potassium Chloride Carbon Dioxide Anion Gap BUN Creatinine BUN/Creatinine Ratio POC Glucose > 400 H* Random Glucose 448 H* Serum Osmolality Calcium Total Bilirubin AST ALT Alkaline Phosphatase Serum Total Protein Albumin Globulin Albumin/Globulin Ratio Urine Color Urine Appearance Urine pH Ur Specific [place] Urine Protein Urine Glucose (UA) Urine Ketones Urine Blood Urine Nitrite Urine Bilirubin Urine Urobilinogen Ur Leukocyte Esterase Urine RBC Urine WBC Ur Epithelial Cells Amorphous Sediment Urine Bacteria Serum Ketones Negative Departure - Departure Clinical Impression: Hyperglycemia, Bilateral flank pain Diabetes type 2, uncontrolled Qualifiers: Diabetes mellitus complication status: without complication Diabetes mellitus care home insulin use: with middle or intermediate school principal use Qualified Code(s): E11.65 - Type 2 diabetes mellitus with hyperglycemia; Z79.4 - meterman (current) use of insulin Time of Disposition: 01:46 Disposition: Discharge to Home or Self Care Condition: Good Departure Forms: ED Discharge - Pt. Copy, Patient Portal Self Enrollment Instructions: Type 2 Diabetes, DI for Hyperglycemia -- Adult, DI for Low Back Pain Diet: diabetic diet Activity: increase activity as tolerated Referrals: Razia Dominguez NP [Nurse Practitioner] - 1-5 Days Home Medications: Ambulatory Orders Insulin Aspart [Novolog] 0 unit SC .SLIDING SCALE 07/14/16 Phenobarbital 129.6 mg PO AC 11/20/16 Cyclobenzaprine HCl [Flexeril] 10 mg PO TID PRN 08/28/17 Insulin NPH Isophane & Reg (Hu [Novolin 70/30 (70-30) 100 Unit/ml] 20 inj SC TID 08/28/17 Phenobarbital 64.8 mg PO BEDTIME 08/28/17 Pregabalin [Lyrica] 50 mg PO BID 08/28/17
[2017-08-28] MEDS ORDERED: SODIUM CHLORIDE 0.9% 1000ML 1,000 ML IVS ONE (23:56)
[2017-08-28] MEDS ORDERED: INSULIN, REG.(HUMAN) 100 U/ML VIAL SUBCU ONE (23:56)
[2017-08-29] MEDS ORDERED: INSULIN, REG.(HUMAN) 100 U/ML VIAL SUBCU ONE (01:44)
[2017-08-29 01:45] VITALS: BP 129/75
== END 2017-08-29 01:58 | disposition home or self-care (01) ==
LOC: ER 22:33
DX: E11.65 Type 2 diabetes mellitus with hyperglycemia (principal); R10.9 Unspecified abdominal pain; Z79.4 Long term (current) use of insulin; Z88.6 Allergy status to analgesic agent; Z88.8 Allergy status to other drugs, medicaments and biological substances
CPT/HCPCS: 36415; 36416; 80053; 81001; 82009; 82947; 82948; 85025; J1200; J2405; J7030

== ENCOUNTER 2019-05-06 09:58 | Emergency (ER) | payer OTHER ==
--- NOTE | 2019-05-06 10:27 | ED.PDOC ---
History of Present Illness - General Chief Complaint: Diabetic Complaint Stated Complaint: dizzy,nausea,elevated blood sugar Time Seen by Provider: 05/06/19 10:26 Source: patient Exam Limitations: no limitations - History of Present Illness Initial Comments: Carey Lujan 44 y/o female stated that she had on and off N/V the last 2 days stating she ran out of her insulin injection as well as having dull fronto temporal headache -stating has migraines since she ran out also of her phenobarbital the last 3 days.No diarrhea,no fever or chills. Timing/Duration: other - 2 days-see hpi Improving Factors: nothing Worsening Factors: nothing Associated Symptoms: headaches, nausea/vomiting, other - see hpi Allergies/Adverse Reactions: Allergies Morphine Allergy (Verified 08/28/17 22:46) Sumatriptan [From Imitrex] Allergy (Verified 08/28/17 22:46) Home Medications: Ambulatory Orders Insulin Aspart [Novolog] 0 unit SC .SLIDING SCALE 07/14/16 Phenobarbital 194.4 mg PO DAILY 08/28/17 Insulin Detemir [Levemir] 40 unit SUBCU BEDTIME 05/06/19 Insulin Lispro [HumaLOG] 0 unit SUBCU Q8HR #1 pen 05/06/19 PHENobarbital TAB 32.4MG [Phenobarbital Tab 32.4MG] 64.8 mg PO TID #14 tab 05/06/19 Prochlorperazine Tab [Compazine Tab] 10 mg PO Q8HRS PRN #10 tab 05/06/19 Review of Systems - Review of Systems Constitutional: States: no symptoms reported EENTM: States: no symptoms reported Respiratory: States: no symptoms reported Cardiology: States: no symptoms reported Gastrointestinal/Abdominal: States: see HPI, vomiting Genitourinary: States: no symptoms reported Musculoskeletal: States: no symptoms reported Skin: States: no symptoms reported Neurological: States: headache Endocrine: States: no symptoms reported All other Systems: Reviewed and Negative, No Change from Baseline Past Medical History (General) - Patient Medical History Hx Seizures: Yes Hx Stroke: No Hx Dementia: No Hx Asthma: No Hx of COPD: No Hx Cardiac Disorders: No Hx Congestive Heart Failure: No Hx Pacemaker: No Hx Hypertension: No Hx Thyroid Disease: No Hx Diabetes: Yes Hx Gastroesophageal Reflux: No Hx Renal Disease: No Hx Cancer: No Hx of HIV: No Hx Hepatitis C: No Hx MRSA: No Hx Other PMH: Yes - migraines MRSA Source:: Wound Surgical History: appendectomy, other - orif-right wrist,shoulder,hysterectomy - Vaccination History Hx Tetanus, Diphtheria Vaccination: No Hx Influenza Vaccination: No Hx Pneumococcal Vaccination: No - Social History Hx Tobacco Use: No Hx Chewing Tobacco Use: No Hx Alcohol Use: No Hx Substance Use: No Hx Substance Use Treatment: No Hx Depression: No Hx Physical Abuse: No Hx Emotional Abuse: No Hx Suspected Abuse: No - Female History Patient : No Family Medical History - Family History Mother Family History: Unknown Living Status: Still Living Hx Family Cancer: Yes - cervical-mom;colon-dad Physical Exam - Physical Exam General Appearance: Alert, Comfortable, No apparent distress Eye Exam: bilateral normal Ears, Nose, Throat: hearing grossly normal, normal ENT inspection, normal pharynx Neck: non-tender, full range of motion, supple Respiratory: chest non-tender, lungs clear, normal breath sounds, no respiratory distress Cardiovascular/Chest: normal peripheral pulses, regular rate, rhythm, no murmur Peripheral Pulses: radial,right: 2+, radial,left: 2+ Gastrointestinal/Abdominal: normal bowel sounds, non tender, soft, no organomegaly Back Exam: no CVA tenderness, no vertebral tenderness Extremity: no pedal edema, no calf tenderness Neurologic: alert, oriented x 3 Skin Exam: normal color, warm/dry Progress - Progress Progress: 05/06/19 11:13 Vital Signs - 8 hr 05/06/19 10:06 Temperature 97.9 F Pulse Rate [ 90 Left Brachial] Respiratory 20 Rate Blood Pressure 152/99 [Left Arm] O2 Sat by Pulse 98 Oximetry - Results/Orders Results/Orders: Laboratory Tests 05/06/19 05/06/19 10:50 11:00 WBC 11.1 H RBC 4.72 Hgb 13.5 Hct 40.0 MCV 84.7 MCH 28.5 MCHC 33.7 RDW 13.0 Plt Count 254 MPV 9.6 Absolute Neuts (auto) 5.70 Absolute Lymphs (auto) 4.70 H Absolute Monos (auto) 0.60 Absolute Eos (auto) 0.10 Absolute Basos (auto) 0.10 Neutrophils % 50.8 Lymphocytes % 41.9 Monocytes % 5.7 Eosinophils % 0.8 L Basophils % 0.8 PT 10.0 INR 1.00 PTT (SP) 22.6 Sodium 136 Potassium 3.3 L Chloride 98 L Carbon Dioxide 25 Anion Gap 16.3 BUN 16 Creatinine 0.71 BUN/Creatinine Ratio 22.5 H Random Glucose 263 H Serum Osmolality 282.3 Calcium 9.5 Magnesium 1.6 L Total Bilirubin 0.2 Direct Bilirubin < 0.1 Indirect Bilirubin 0.1 L AST 18 ALT 12 Alkaline Phosphatase 132 H Creatine Kinase 37 CK-MB (CK-2) 0.7 CK-MB (CK-2) % Not Reportable Troponin I < 0.02 Serum Total Protein 8.1 Albumin 4.0 Lipase 26 Urine Color Yellow Urine Appearance Sl cloudy Urine pH 5.5 Ur Specific [place] 1.025 Urine Protein 30 Urine Glucose (UA) 500 H Urine Ketones Trace Urine Blood Negative Urine Nitrite Negative Urine Bilirubin Small H Urine Urobilinogen 0.2 Ur Leukocyte Esterase Trace H Urine RBC 0 Urine WBC 5-10 H Ur Epithelial Cells 5-10 Urine Bacteria 1+ Urine Mucus Small Urine Yeast 1+ budding H Discuss all test results with patient;advised to call primary Md for follow up April for recheck Departure - Departure Clinical Impression: Nausea & vomiting Qualifiers: Vomiting type: unspecified Vomiting Intractability: non-intractable Qualified Code(s): R11.2 - Nausea with vomiting, unspecified Diabetes Qualifiers: Diabetes mellitus type: type 1 Diabetes mellitus complication status: without complication Qualified Code(s): E10.9 - Type 1 diabetes mellitus without complications Migraine Qualifiers: Migraine type: unspecified Status migrainosus presence: without status migrainosus Intractability: not intractable Qualified Code(s): G43.909 - Migraine, unspecified, not intractable, without status migrainosus Time of Disposition: 11:53 Disposition: Discharge to Home or Self Care Condition: Fair Departure Forms: ED Discharge - Pt. Copy, Patient Portal Self Enrollment Instructions: DI for Diabetes Type 1 -- Adult Diet: other - AVOID GREASY SPICY FOODS UNTIL BETTER Referrals: Nichole Cartwright NP [Primary Care Provider] - 1-2 Weeks Prescriptions: Insulin Lispro [HumaLOG] 0 unit SUBCU Q8HR #1 pen Prochlorperazine Tab [Compazine Tab] 10 mg PO Q8HRS PRN #10 tab PRN Reason: Nausea/Vomiting PHENobarbital TAB 32.4MG [Phenobarbital Tab 32.4MG] 64.8 mg PO TID #14 tab Home Medications: Ambulatory Orders Insulin Aspart [Novolog] 0 unit SC .SLIDING SCALE 07/14/16 Phenobarbital 194.4 mg PO DAILY 08/28/17 Insulin Detemir [Levemir] 40 unit SUBCU BEDTIME 05/06/19 Insulin Lispro [HumaLOG] 0 unit SUBCU Q8HR #1 pen 05/06/19 PHENobarbital TAB 32.4MG [Phenobarbital Tab 32.4MG] 64.8 mg PO TID #14 tab 05/06/19 Prochlorperazine Tab [Compazine Tab] 10 mg PO Q8HRS PRN #10 tab 05/06/19 Additional Instructions: Follow up with your primary Md 08 May 2019 for recheck;Return to emergency room as needed;continue with your home medications
[2019-05-06] MEDS ORDERED: PROCHLORPERAZINE INJ 10 MG/2 ML VIAL IV ONE (10:28)
[2019-05-06] MEDS ORDERED: LACTATED RINGERS 1,000 ML IVS ONE (10:28)
[2019-05-06] MEDS ORDERED: MAGNESIUM SULFATE PREMIX 2GM 2 GM in PREMIX BAG 1 BAG IVPB ONE (11:14)
[2019-05-06] MEDS ORDERED: MAGNESIUM SULFATE PREMIX 2GM 50 ML IVPB ONE ×2 (11:15→11:19)
[2019-05-06 11:19] VITALS: O2SAT 95
[2019-05-06] MEDS ORDERED: BUTORPHANOL TARTRATE 2 MG/ML VIAL IV ONE (11:25)
[2019-05-06 12:17] VITALS: BP 118/77
[2019-05-06 12:21] VITALS: TEMP 98
== END 2019-05-06 12:21 | disposition home or self-care (01) ==
LOC: ER 09:58
DX: R11.2 Nausea with vomiting, unspecified (principal); E10.9 Type 1 diabetes mellitus without complications; G43.909 Migraine, unspecified, not intractable, without status migrainosus; R56.9 Unspecified convulsions; Z79.4 Long term (current) use of insulin; Z79.899 Other long term (current) drug therapy; Z88.8 Allergy status to other drugs, medicaments and biological substances; Z88.5 Allergy status to narcotic agent
CPT/HCPCS: 36415; 80048; 80076; 81001; 82550; 82553; 83690; 84484; 85025; 85610; 85730; J0595; J0780; J3475; J7120